=== PATIENT | female | born 1975 | race Caucasian/White ===

== ENCOUNTER → 2020-07-14 | Outpatient (CLI) | payer SELFPAY ==
--- NOTE | 2020-07-14 16:42 | US ---
EXAMINATION TYPE: US thyroid st tissue head/neck DATE OF EXAM: 07/14/2020 COMPARISON: NONE CLINICAL HISTORY: E04.2 Nontoxic Multinodular goiter. GLAND SIZE: Right Lobe: 4.9 x 1.7 x 1.8 cm Overall Parenchyma: heterogenous Left Lobe: 4.9 x 1.4 x 1.7 cm Overall Parenchyma: heterogeneous Isthmus Thickness: 0.3 cm NODULES RIGHT: # of nodules measured on right: 0 LEFT: # of nodules measured on left: 0 ISTHMUS: # of nodules measured in the isthmus: 0 Bilateral neck scanned, prominent lymph node noted on left measuring 2.6 x 1.0 x 1.4cm IMPRESSION: Heterogeneous thyroid echotexture, correlate for thyroiditis
== END | disposition home or self-care (01) ==
LOC: RADUSWWP 07:01
PROVIDERS: ATTEND Internal Medicine Endocrinology, Diabetes & Metabolism
DX: E07.9 Disorder of thyroid, unspecified (principal)
CPT/HCPCS: 76536